=== PATIENT | male | born 1965 | race Hispanic/Latino ===

== ENCOUNTER 2018-09-30 23:29 | Emergency (ER) | payer OTHER ==
[2018-10-01] MEDS ORDERED: DEXAMETHASONE SOD PHOSPHATE 10MG/ML 1ML VIAL ONE (00:28)
[2018-10-01] MEDS ORDERED: KETOROLAC TROMETHAMINE 60 MG/2 ML VIAL ONE (00:29)
[2018-10-01] MEDS ORDERED: ORPHENADRINE CITRATE 30 MG/ML ML ONE (00:29)
== END 2018-10-01 01:26 | disposition home or self-care (01) ==
LOC: EDH 23:29
DX: M54.31 Sciatica, right side (principal); Z90.49 Acquired absence of other specified parts of digestive tract; Z87.891 Personal history of nicotine dependence
CPT/HCPCS: 96372 ×3; 99283; J1100; J1885; J2360